=== PATIENT | female | born 1985 | race Caucasian/White ===

== ENCOUNTER 2021-09-03 09:11 | Inpatient (IN) ==
--- NOTE | 2021-09-03 09:20 | History & Physical Report ---
Date of Service September 03, 2021 Assessment & Plan (1) Spontaneous onset of labor: Plan: Fiorella Minor is a 36 y/o female at 39 wks presenting to L&D for SROM. -Admit to Labor & Delivery, positive Amnisure. Complicated by AMA -Intrauterine at 39W gestation, GBS-, A--->Rhogam after delivery, Antibody -. - Heart Rate- Baseline 140s, accelerations present, no decelerations -NPO, except ice chips -Continuous electronic monitoring -Anticipate normal spontaneous vaginal delivery -Epidural PRN History of Present Illness Chief Complaint: Fiorella Minor is a 36 y/o female at 39 wks presenting to L&D for SROM. Pt experienced a "pop and leakage of fluid" at 0645 this morning. Positive FM. Reports contractions every 7-10 minutes. Reports some light bleeding when she experienced the leakage of fluid, but reports it was mostly clear. Current pain level is 0/10, but is 4-5/10 with contractions. Hx of premature labor and demise 24 hours after delivery. No complaints or questions at this time. OB Labs: Antibody Screen NEGATIVE 06/20/21 Hemoglobin 11.7 g/dL (12.0-16.0) L 06/20/21 Hematocrit 35.1 % (37-47) L 06/20/21 Glucose 1 Hour 50 gm Load 184 mg/dl (70-130) H 06/20/21 OB Optional Labs: Chlamydia trachomatis RNA NOT DETECTED (NOT DETECTED) 01/31/21 Neisseria gonorrhoeae RNA NOT DETECTED (NOT DETECTED) 01/31/21 Labs Reviewed: Initial OB Labs Blood Type & RH A negative Antibody Screen negative HCT/HGB 35.8/11.9 Platelets 273 Rubella immune RPR non-reactive HBsAg non-reactive HIV negative MCV 92 Primary Care Provider: NO PCP Allergies Allergy/AdvReac Type Severity Reaction Status Date / Time No Known Allergies Allergy Mild Verified 09/03/21 09:55 Home Medications Medication Instructions Recorded Confirmed Type prenat.vits,carol,jrn-slcg-cohjz 1 tab PO DAILY 01/24/21 09/03/21 History acetone (urine) test (Ketone Urine #50 ea 07/21/21 08/29/21 Rx Test) blood sugar diagnostic (OneTouch #150 ea 07/21/21 08/29/21 Rx Verio test strips) blood-glucose meter (OneTouch #1 ea 07/21/21 08/29/21 Rx Verio Flex meter) lancets 33 gauge (OneTouch Delica #150 ea 07/21/21 08/29/21 Rx Plus Lancet) valacyclovir 500 mg tablet 1,000 mg PO DAILY #60 tab 08/15/21 09/03/21 Rx (Valtrex) Patient History Medical History (Updated 09/03/21 @ 09:43 by Zach Sims DO) Herpes Patient to start Valtex at 36 weeks. History of chicken pox Surgical History (System 01/31/21 @ 11:37 by Jennifer Eden) S/P loop electrosurgical excision procedure S/P tonsillectomy Family History (System 01/31/21 @ 11:37 by Jennifer Eden) Aunt Breast cancer Grandmother (Paternal) Pancreatic cancer Grandfather (Maternal) Dementia Denies family history of Ovarian cancer Clotting disorder Social History (System 01/31/21 @ 11:37 by Jennifer Eden) Smoking Status: Never smoker Hx Alcohol Use: No Hx Substance Use: No Preferred Language: Ghanaian Communication Ability: Effective Beliefs That Will Affect Care: None marital status: marital status details: Shabbir Christina (34) [phone] Current Living Situation: Spouse Current Living Situation Comment: Shabbir Christina current occupational status: employed current occupation: [employer] Other Information That Helps Us Care for You: No Feels Safe at Home: Yes Safety Concerns: Feels Safe At This Time Assistive Devices: None Review of Systems All systems reviewed & are unremarkable except as noted in HPI & below Physical Exam Physical Exam: General: Alert, oriented, no acute distress Cardiac: Regular rate and rhythm, normal S1, S2. No murmurs appreciated. Respiratory: Clear to auscultation b/l with good air flow entry, symmetric chest rise and fall. No wheezes or crackles. No increased work of breathing or accessory muscle use Abdomen: Gravid, soft, nontender. No guarding or CVA tenderness Skin: No rashes or lesions Extremities: Warm, dry, well-perfused with capillary refill <2s b/l. No lower extremity edema, erythema or swelling. Negative Jayant's sign b/l. Genitourinary: normal external appearance Manual OB Exam: + cervical dilation 4 cm, + cervical effacement 90% and + station -1 OB Exam Monitor Tracing: + external FHT monitor used, + category I and + normal FHT variability
[2021-09-03] MEDS ORDERED: LACTATED RINGER'S 1,000 ML IV PRN (11:00)
[2021-09-03] MEDS ORDERED: OXYTOCIN 30 UNITS/500 ML BAG IV PRN (11:00)
--- NOTE | 2021-09-03 11:02 | Obstetrical Progress Note ---
Date of Service September 03, 2021 Patient reported leakage of fluid approximately 7 AM sterile speculum exam was performed revealing no obvious fluid but both nitrazine and AmniSure were positive she was checked in 4 cm and 90% she is eligio every 7 to 10 minutes. The patient wishes very little intervention at this time I did discuss the role Pitocin might have in this situation specifically has the contraction pattern is not regular yet patient understands Pitocin is an option at this stage she would very much like to avoid Pitocin. I discussed the risks of infection if prolonged rupture membranes were to occur patient is group B strep negative and we discussed perhaps that 6 to 8 hours from rupture of membranes reassessing checking her cervix and determining if she would consider the option of Pitocin at that time for augmentation of labor patient thinks this is a reasonable plan and discusses again that she really wishes the least amount of intervention possible I expressed that I understood this and will respect this but certainly will continue to recommend what is best for baby and mother Results & Data ([facility]) Vital Signs (Past 12 Hours) Vital Signs Temp Pulse Resp BP 09/03/21 09:26 98.2 F 20 09/03/21 09:19 77 107/56 L PG Care Time/CCT Total # of Minutes Spent Total Time Spent with Patient: Total time spent is greater than 50% in coordination of care (as documented) at patient's floor/unit and/or counseling patient: Coding Level of Care Code None
[2021-09-03 11:31] LABS: Hemoglobin 12.8 g/dL (12.0-16.0); Mean Corpuscular Hemoglobin 31.6 pg (25-34); Mean Corpuscular Hgb Conc 34.6 g/dL (32-36); Mean Corpuscular Volume 91.4 fL (80-100); Mean Platelet Volume 11.9 fL (7.4-10.4); Platelet Count 230 K/uL (130-400); RDW Coefficient of Variation 13.4 % (11.5-14.5); RDW Standard Deviation 44.5 fL (36.4-46.3); Red Blood Count 4.05 M/uL (4.2-5.4); White Blood Count 15.98 K/uL (4.8-10.8)
[2021-09-04] MEDS ORDERED: LIDOCAINE 1% LOCAL 20 ML VIAL ONE (00:04)
--- NOTE | 2021-09-04 00:20 | Delivery Summary ---
Vaginal Delivery Summary Date of Service September 04, 2021 Vaginal Delivery Summary and 2nd Degree LAC Spontaneous vaginal delivery patient arrived with ruptured membranes group B strep negative Covid negative progress spontaneously and for labor and to fully dilated she did not have an epidural she pushed baby in occiput anterior position mouth and then nares suctioned fluid was clear no nuchal cord gentle traction no excessive force live vigorous male cord clamped and cut cord gases obtained cord blood obtained placenta removed with gentle traction second- degree tear repaired with 3-0 Vicryl estimated blood loss 200 mL sponge and instrument counts correct note we did use lidocaine for the perineum prior to repair [facility] Vaginal Delivery Charge Delivery Type Details: and 2nd Degree LAC
[2021-09-04] MEDS ORDERED: DIPHTHERIA/TETANUS/PERTUSSIS 0.5 ML SYR/VIAL IM ONE (00:44)
[2021-09-04] MEDS ORDERED: OXYTOCIN 30 UNITS/500 ML BAG IV PRN (00:44)
[2021-09-04] MEDS ORDERED: bisacodyL 10 MG SUPP PR PRN (00:44)
[2021-09-04] MEDS ORDERED: oxyCODONE/ACETAMINOPHEN 5mg/325mg TAB PO PRN (00:44)
[2021-09-04] MEDS ORDERED: BENZOCAINE 20% AER SPR 82.5 GM CAN EXT PRN (00:44)
[2021-09-04] MEDS ORDERED: HYDROCORTISONE ACETATE 25 MG SUPP PR PRN (00:44)
[2021-09-04] MEDS ORDERED: SUPERCREAM 0.870% 15 GM JAR EXT PRN (00:44)
[2021-09-04 00:59] LABS: Base Excess Cord Venous Blood -4.3 mEq/L (-7.7-1.9); Cord Venous Blood HCO3 21 mmol/L (18.4-26.8); Cord Venous Blood PCO2 39 mmHg (30.4-57.2); Cord Venous Blood PO2 42 mmHg (14.1-43.3); Cord Venous Blood pH 7.35 (7.20-7.44)
[2021-09-04 01:00] LABS: Base Excess Cord Arterial Bld -5.5 mEq/L (-9-1.8); CO2 Cord Arterial Blood 53 mmHg (39.1-73.5); HCO3 Cord Arterial Blood 22 mmol/L (19.7-28.5); PO2 Cord Arterial Blood 13 mmHg (4.1-31.7); pH Cord Arterial Blood 7.24 (7.1-7.38)
[2021-09-04 01:06] LABS: Oxygen Sat Cord Arterial Blood < 60.0 % (<60)
--- NOTE | 2021-09-04 07:08 | Obstetrical Progress Note ---
Date of Service <Zach Sims - Last Filed: 09/04/21 07:08> September 04, 2021 Assessment & Plan <Zach Sims - Last Filed: 09/04/21 07:08> (1) Encounter for care and examination after delivery: 36 yo s/p at 39weeks -Continue routine care; keep 24 hours reassess in am. -Vitals reviewed- HDS, afebrile -A-, GBS-, Rubella immune; Rhogam today if baby blood is Rh+ -Encouraged ambulation, regular diet -Pain control with ibuprofen, acetaminophen PRN -Encouraged <Jc Cadet MD, FACOG - Last Filed: 09/04/21 07:26> (1) Encounter for care and examination after delivery: Subjective <Zach SimsDO - Last Filed: 09/04/21 07:08> Ambulation: ambulating normally Voiding: no voiding problems Passing Gas:: Yes Diet Tolerance:: regular diet Lochia:: Moderate Feeding Type:: breast feeding Current Pain Level(1-10): 3 s/p . Patient seen and examined at bedside. Reports no acute overnight events. Review of Systems All systems reviewed & are unremarkable except as noted in HPI & below Physical Exam <Zach Sims DO - Last Filed: 09/04/21 07:08> General: Alert, oriented, no acute distress Cardiac: Regular rate and rhythm, normal S1, S2. No murmurs appreciated. Respiratory: Clear to auscultation b/l with good air flow entry, symmetric chest rise and fall. No wheezes or crackles. No increased work of breathing or accessory muscle use Abdomen: Soft, nontender, nondistended. Fundus firm and palpable at 2 cm below umbilicus. No guarding or rebound. Skin: No rashes or lesions Extremities: Warm, dry, well-perfused with capillary refill <2s b/l. No lower extremity edema, erythema or swelling. Negative Jayant's sign b/l. Results & Data ([facility]) <Zach SimsDO - Last Filed: 09/04/21 07:08> Vital Signs (Past 12 Hours) Vital Signs Temp Pulse Resp BP 09/04/21 02:20 18 09/04/21 02:19 71 97/56 L 09/04/21 02:04 75 106/67 09/04/21 01:50 18 09/04/21 01:49 61 111/68 09/04/21 01:34 64 104/64 09/04/21 01:20 18 09/04/21 01:19 65 99/61 L 09/04/21 01:05 18 09/04/21 01:04 76 101/62 09/04/21 00:50 18 09/04/21 00:49 72 97/59 L 09/04/21 00:40 80 99/61 L 09/04/21 00:35 18 09/04/21 00:34 86 100/60 09/04/21 00:20 18 09/03/21 22:15 36.5 C 18 09/03/21 19:15 37.0 C 18 09/03/21 19:12 100 H 108/72 <Jc Cadet MD, FACOG - Last Filed: 09/04/21 07:26> Co-Signing Physician Notes Resident Physician Supervision Note: I was present with Dr. Sims during the history and exam. I discussed the case with the resident and agree with the findings and plan as documented in the note. Any exceptions or clarifications are listed here: [None] Documented By: Jc Cadet MD, FACOG
[2021-09-04] MEDS ORDERED: COUGH DROP (SUGAR FREE) LOZ 24 LOZ/1 BOX BUCCAL ONE (08:44)
[2021-09-04] MEDS: DOCUSATE SODIUM 100 MG CAP PO SCH ×2 (10:11→21:32)
[2021-09-04] MEDS: PRENATAL VITAMIN 1 TAB PO SCH (10:11)
[2021-09-04] MEDS: IBUPROFEN 600 MG TAB PO PRN ×2 (17:34→23:23)
[2021-09-04] MEDS: ACETAMINOPHEN 325 MG TAB PO PRN (21:32)
[2021-09-05] MEDS: ACETAMINOPHEN 325 MG TAB PO PRN (02:57)
--- NOTE | 2021-09-05 07:02 | Obstetrical Progress Note ---
Date of Service <Zach Sims DO - Last Filed: 09/05/21 07:02> September 05, 2021 Assessment & Plan <Zach Sims DO - Last Filed: 09/05/21 07:02> (1) Encounter for care and examination after delivery: 36 yo s/p at 39weeks -Continue routine care; keep 24 hours reassess in am. -Vitals reviewed- HDS, afebrile -A-, GBS-, Rubella immune; Rhogam given yesterday. -Encouraged ambulation, regular diet -Pain control with ibuprofen, acetaminophen PRN -Encouraged <Chanda Villalobos MD, FACOG - Last Filed: 09/05/21 07:56> (1) Encounter for care and examination after delivery: Subjective <Zach Sims DO - Last Filed: 09/05/21 07:02> Ambulation: ambulating normally Voiding: no voiding problems Passing Gas:: Yes Diet Tolerance:: regular diet Lochia:: Moderate Feeding Type:: breast feeding Current Pain Level(1-10): 4 PPD 1 s/p . Patient seen and examined at bedside. Reports no acute overnight events. Reports increased pain compared to yesterday, but states it is manageable with ibuprofen and Tylenol. Review of Systems All systems reviewed & are unremarkable except as noted in HPI & below Physical Exam <Zach Sims DO - Last Filed: 09/05/21 07:02> General: Alert, oriented, no acute distress Cardiac: Regular rate and rhythm, normal S1, S2. No murmurs appreciated. Respiratory: Clear to auscultation b/l with good air flow entry, symmetric chest rise and fall. No wheezes or crackles. No increased work of breathing or accessory muscle use Abdomen: Soft, nontender, nondistended. Fundus firm and palpable at 2 cm below umbilicus. No guarding or rebound. Skin: No rashes or lesions Extremities: Warm, dry, well-perfused with capillary refill <2s b/l. No lower extremity edema, erythema or swelling. Negative Jayant's sign b/l. Results & Data ([facility]) <Zach Sims - Last Filed: 09/05/21 07:02> Vital Signs (Past 12 Hours) Vital Signs Temp Pulse Resp BP Pulse Ox 09/04/21 23:15 36.5 C 79 16 94/62 L 09/04/21 20:30 36.4 C L 77 18 98/63 L 99 <Chanda Villalobos MD, FACOG - Last Filed: 09/05/21 07:56> Co-Signing Physician Notes Resident Physician Supervision Note: I was present with Dr. Sims during the history and exam. I discussed the case with the resident and agree with the findings and plan as documented in the note. Any exceptions or clarifications are listed here: [None] Documented By: Chanda Villalobos MD, FACOG
[2021-09-05 08:06] LABS: Hematocrit (blood only) 31.9 % (37-47); Hemoglobin 10.7 g/dL (12.0-16.0)
[2021-09-05] MEDS: IBUPROFEN 600 MG TAB PO PRN ×2 (08:18→12:34)
[2021-09-05] MEDS: PRENATAL VITAMIN 1 TAB PO SCH (08:19)
[2021-09-05] MEDS: DOCUSATE SODIUM 100 MG CAP PO SCH ×2 (08:19→22:04)
[2021-09-05] MEDS ORDERED: bisacodyL 5 MG TABEC PO SCH (20:00)
[2021-09-06 05:57] LABS: Hematocrit (blood only) 33.1 % (37-47)
--- NOTE | 2021-09-06 06:59 | Obstetrical Progress Note ---
Date of Service <Zach Sims - Last Filed: 09/06/21 07:54> September 06, 2021 Assessment & Plan <Zach Sims - Last Filed: 09/06/21 07:54> (1) Encounter for care and examination after delivery: 36 yo s/p at 39weeks -Continue routine care; expect D/C today. Possible nesting if baby is not D/C'd. -Vitals reviewed- HDS, afebrile -A-, GBS-, Rubella immune; Rhogam given 09/04/21. -Encouraged ambulation, regular diet -Pain control with ibuprofen, acetaminophen PRN -Encouraged -F/u with Ob in 6 weeks. <Alexsandra Singh MD, FACOG - Last Filed: 09/06/21 08:38> (1) Encounter for care and examination after delivery: Subjective <Zach SimsDO - Last Filed: 09/06/21 07:54> Ambulation: ambulating normally Voiding: no voiding problems Passing Gas:: Yes Diet Tolerance:: regular diet Lochia:: Small Feeding Type:: breast feeding PPD 2 s/p . Patient seen and examined at bedside. Reports no acute overnight events. Physical Exam <Zach Sims - Last Filed: 09/06/21 07:54> General: Alert, oriented, no acute distress Cardiac: Regular rate and rhythm, normal S1, S2. No murmurs appreciated. Respiratory: Clear to auscultation b/l with good air flow entry, symmetric chest rise and fall. No wheezes or crackles. No increased work of breathing or accessory muscle use Abdomen: Soft, nontender, nondistended. Fundus firm and palpable at 2 cm below umbilicus. No guarding or rebound. Skin: No rashes or lesions Extremities: Warm, dry, well-perfused with capillary refill <2s b/l. No lower extremity edema, erythema or swelling. Negative Jayant's sign b/l. Results & Data ([facility]) <Zach SimsDO - Last Filed: 09/06/21 07:54> Vital Signs (Past 12 Hours) Vital Signs Temp Pulse Resp BP 09/06/21 00:15 36.6 C 72 18 104/66 <Alexsandra Singh MD, FACOG - Last Filed: 09/06/21 08:38> Co-Signing Physician Notes Resident Physician Supervision Note: I interviewed and examined the patient. Discussed with Dr. Sims and agree with findings and plan as documented in the note. Any exceptions or clarifications are listed here: Patient doing well, ready to go home. has a rash on upper right back, she notes no itching wants me to look at. baby well, . exam abd--soft ff nt at 2 down, ext nt calves. rash on upper left back looks like crusted over vesicles. pt denies any burning tingling pain. ppd#2, stable for d/c home. f/u 6wk pp, reviewed instructions. breast, rh neg, had rhogam, [place]. ?shingles on back. discussed course, given no sx, do not feel needs course of valtrex, did say area appeared in labor. Documented By: Alexsandra Singh MD, FACOG
[2021-09-06] MEDS: DOCUSATE SODIUM 100 MG CAP PO SCH (09:17)
[2021-09-06] MEDS: PRENATAL VITAMIN 1 TAB PO SCH (09:18)
[2021-09-06] MEDS: IBUPROFEN 600 MG TAB PO PRN (15:09)
== END 2021-09-06 15:45 | disposition home or self-care (01) | DRG 807 ==
LOC: OPB 09:11 → 4S1 09:13 → 4S2 09-04 03:05